=== PATIENT | female | born 1980 | race Two or more races ===

== ENCOUNTER 2019-12-24 16:54 | Observation (INO) | payer SELFPAY ==
[2019-12-24 17:36] LABS: BILIRUBIN,URINE NEGATIVE (NEG); CLARITY,URINE CLOUDY; COLOR,URINE YELLOW; NITRITE,URINE NEGATIVE (NEG); PROTEIN,URINE NEGATIVE (NEG-TRACE); UROBILINOGEN,URINE 0.2 mg/dL (0.2 mg/dL)
[2019-12-24 17:41] LABS: BACTERIA,URINE FEW /HPF (0-FEW); SQUAMOUS EPITHELIAL CELL,UR MOD /LPF
[2019-12-24 17:44] LABS: AMPHETAMINE/METHAMPHETAMINE NEG (NEG); BARBITURATES NEG (NEG); BENZODIAZEPINES NEG (NEG); CANNABINOIDS NEG (NEG); COCAINE NEG (NEG); METHADONE NEG (NEG); OPIATES NEG (NEG); PHENCYCLIDINE NEG (NEG)
[2019-12-24] MEDS ORDERED: BUTORPHANOL 2 MG/ML VIAL. IV ONE (18:00)
[2019-12-24] MEDS: IV RINGERS,LACTATED 1000ML 1,000 ML IV SCH ×2 (18:01→19:23)
[2019-12-24] MEDS ORDERED: AMPICILLIN SODIUM 2 GM in IV NORMAL SALINE 100ML 100 ML IV ONE (18:45)
[2019-12-24] MEDS ORDERED: ACETAMINOPHEN 500 MG TABLET PO PRN (20:00)
== END 2019-12-24 21:30 | disposition home or self-care (01) ==
LOC: 3 SO LND 16:54
PROVIDERS: ADMIT Obstetrics & Gynecology; ATTEND Obstetrics & Gynecology
DX: O26.892 Other specified pregnancy related conditions, second trimester (principal); M54.9 Dorsalgia, unspecified; Z3A.25 25 weeks gestation of pregnancy; Z79.899 Other long term (current) drug therapy
CPT/HCPCS: 80307; 81001; 87086; 96374; G0378; G0379; J0595; J7120

== ENCOUNTER → 2019-12-24 | Emergency (ER) | payer SELFPAY | END | disposition left against medical advice (07) | LOC: ER 16:36 | DX: R10.9 Unspecified abdominal pain (principal); Z53.21 Procedure and treatment not carried out due to patient leaving prior to being seen by health care provider ==